=== PATIENT | female | born 1970 | race Caucasian/White ===

== ENCOUNTER 2021-12-19 09:28 | Outpatient (CLI) | payer BC, SELFPAY ==
--- NOTE | 2021-12-19 09:58 | ECHO_ITS ---
Patient Info Name: Luz Maria Guevara Age: 51 years : 1970 Gender: Female Ht: 66 in Wt: 195 lbs BSA: 2.06 m2 HR: 65 bpm BP: 110 / 79 mmHg Technical Quality: Good Exam Date: 12/19/2021 10:05 AM Exam Location: [facility] Patient Status: Outpatient Admit Date: 12/19/2021 Staff Ordering Physician: Evi Lynne NP Health Program Manager: Amparo Nicole RDCS Attending Provider: Evi Lynne NP Referring Physician: Guera TORRES; Exam Type: CA echo doppler color flow Study Info Indications R07.9 - Chest pain, unspecified Complete two-dimensional, color flow and Doppler transthoracic echocardiogram is performed. Summary 1. Complete two-dimensional, color flow and Doppler transthoracic echocardiogram is performed. 2. Left ventricular chamber dimension is normal. 3. Left ventricular systolic function is normal, estimated at 60-65%. 4. The left ventricular diastolic function is normal. 5. E/e' 7 is not elevated. 6. Global longitudinal strain is normal at -19.4%. 7. No pulmonary hypertension, estimated pulmonary arterial systolic pressure is 29 mmHg. Left Ventricle E/e' 7 is not elevated. Global longitudinal strain is normal at -19.4%. Left ventricular chamber dimension is normal. Left ventricular systolic function is normal, estimated at 60-65%. The left ventricular diastolic function is normal. Right Ventricle Right ventricular chamber dimension is normal. Right ventricular systolic function is normal. Left Atria Left atrial chamber dimension is normal. Right Atria Right atrial chamber dimension is normal. Aortic Valve The aortic valve is trileaflet. There is no aortic valve stenosis. There is no aortic valve regurgitation. Pulmonic Valve There is no pulmonic regurgitation. Mitral Valve There is no mitral valve stenosis. There is no mitral valve regurgitation. Tricuspid Valve There is no tricuspid valve regurgitation. No pulmonary hypertension, estimated pulmonary arterial systolic pressure is 29 mmHg. Pericardium/Pleural There is no pericardial effusion. Inferior Vena Cava Inferior vena cava is not well visualized. Aorta The aortic root size at the sinus of Valsalva is normal. Left Ventricular Outflow Tract Name Value Normal LVOT 2D LVOT Diameter 2.0 cm LVOT Doppler LVOT Peak Gradient 5 mmHg LVOT Mean Gradient 3 mmHg LVOT VTI 22 cm LVOT VTI/AV VTI Ratio 0.8 LVOT Stroke Volume 66 ml LVOT CO 3.9 l/min LVOT CI 1.9 l/min/m2 Pulmonic Valve Name Value Normal RVOT Doppler RVOT Peak Gradient 2 mmHg PV Doppler
== END 2021-12-19 09:29 | disposition home or self-care (01) ==
LOC: ANHCARD 09:29
PROVIDERS: Visit Provider Nurse Practitioner
DX: R07.9 Chest pain, unspecified (principal); U09.9 Post COVID-19 condition, unspecified
CPT/HCPCS: 93306

== ENCOUNTER 2023-02-02 03:51 | Emergency (ER) | payer OTHER, SELFPAY ==
--- NOTE | ~2023-02-02 | CT_ITS ---
EXAMINATION: CT lumbar spine wo con DATE: 02/02/2023 04:32 INDICATION: Low back pain. TECHNIQUE: Computed tomography (CT) of the lumbar spine was performed without intravenous contrast. A utomated exposure control and iterative reconstruction technique were employed. The dose-length produ ct was 954.32 mGy-cm. COMPARISON: None FINDINGS: There is 5 degrees levocurvature of lumbar spine. Vertebral body heights and intervertebral disc heights are normal. The following disc levels are specifically discussed: L1-L2: The disc does not extend beyond the endplate margin. There is mild bilateral facet joint osteo arthritis. There is no neural foraminal stenosis. There is no central canal stenosis. L2-L3: The disc is bulging. There is mild bilateral facet joint osteoarthritis. There is mild left ne ural foraminal stenosis. There is mild central canal stenosis. L3-L4: The disc is bulging. There is mild bilateral facet joint osteoarthritis. There is mild bilater al neural foraminal stenosis. There is mild central canal stenosis. L4-L5: The disc is bulging. There is moderate bilateral facet joint osteoarthritis. There is mild rig ht neural foraminal stenosis. There is no central canal stenosis. L5-S1: There is a right foraminal protrusion. There is mild bilateral facet joint osteoarthritis. The re is mild right neural foraminal stenosis. There is no central canal stenosis. IMPRESSION: 1. Mild lumbar spondylosis. Reviewed, dictated and finalized at location A. GUIDE IMPRESSION: 1. Mild lumbar spondylosis.
[2023-02-02 03:53] VITALS: PULSE 74; RESP 14; TEMP 36.7; O2SAT 100
[2023-02-02] MEDS: DEXAMETHASONE SOD PHOS INJ 4 MG/ML VIAL 10 MG IV PUSH (04:37)
[2023-02-02] MEDS: HYDROmorphone HCL INJ (*CRX) 1 MG/ML SYR IV PUSH (04:38)
[2023-02-02] MEDS: KETOROLAC 30 MG/ML VIAL (*BKC) IV PUSH (04:38)
[2023-02-02] MEDS: diazePAM INJ (*CRX) 10 MG/2 ML SYRINGE 5 MG IV PUSH (04:38)
[2023-02-02 04:48] LABS: Basophils Percent Auto 0.5 % (0.2-1.2); Eosinophils Percent Auto 0.5 % (0-4.4); Hematocrit 41.8 % (37.0-47.0); Hemoglobin 13.9 g/dL (12.0-15.0); Immature Granulocyte Absolute 0.01 K/mm3 (0.00-0.031); Immature Granulocyte Percent A 0.2 % (0-0.5); Lymphocytes Absolute Auto 1.71 K/mm3 (0.9-3.2); Lymphocytes Percent Auto 26.4 % (18.3-44.2); Mean Corpuscular HGB Conc 33.3 g/dl (32-36); Mean Corpuscular Hemoglobin 32.7 pg (26-34); Mean Corpuscular Volume 98.4 fl (80-100); Mean Platelet Volume 9.7 fl (7.4-10.4); Monocytes Absolute Auto 0.4 K/mm3 (0.1-0.6); Monocytes Percent Auto 6.3 % (2.6-8.5); Neutrophils Absolute Auto 4.3 K/mm3 (1.3-6.7); Neutrophils Percent Auto 66.1 % (45.5-73.1); Platelet Count Result 284 k/mm3 (150-375); Red Blood Count 4.25 M/mm3 (4.2-5.4); Red Cell Distribution Width 12.1 % (11.5-14.5); White Blood Count 6.5 K/mm3 (4.5-10.0)
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
[2023-02-02 05:02] LABS: Alanine Aminotransferase 16 U/L (6-35); Albumin Level 4.6 g/dL (3.5-5.1); Alkaline Phosphatase 75 U/L (38-126); Anion Gap 5 mmol/L (8-16); Aspartate Amino Transferase 19 U/L (14-36); Bilirubin,Total 0.5 mg/dL (0.2-1.3); Blood Urea Nitrogen 18 mg/dL (7-17); Calcium 9.5 mg/dL (8.4-10.2); Carbon Dioxide 27 mmol/L (22-30); Chloride 107 mmol/L (98-107); Estimated Glomerular Filt Rate > 60; Glucose 124 mg/dL (65-110); Potassium 4.3 mmol/L (3.4-5.0); Sodium 139 mmol/L (137-145)
[2023-02-02 06:18] LABS: Appearance Urine Clear (Clear); Bacteria Urine None Seen /hpf; Bilirubin Urine Negative (Negative); Blood Urine Negative (Negative); Color Urine Yellow (Yellow); Glucose Urine UA Negative (Negative); Ketones Urine Negative (Negative); Leukocyte Esterase Ur Trace LEU/UL (Negative); Nitrate Urine Negative (Negative); Non Pathogenic Casts 0-2; Protein Urine Negative (Negative); RBC Urine 0-2 /hpf (0-2); Specific Grav Ur 1.014 (1.001-1.035); Squamous Epithelial Cell Urine None seen /hpf (Few); Urobilinogen Urine 0.2 mg/dL (<2.0)
[2023-02-02 06:26] LABS: Add Urine Microscopic? YES
--- NOTE | 2023-02-02 07:40 | PC.NURSE ---
pt ambulated with slow steady gait in room. states is moving much better than previous ambulation attempt.
== END 2023-02-02 07:50 | disposition home or self-care (01) ==
PROVIDERS: Emergency Provider Emergency Medicine; PCP Internal Medicine
DX: S39.012A Strain of muscle, fascia and tendon of lower back, initial encounter (principal); X50.0XXA Overexertion from strenuous movement or load, initial encounter; Z87.891 Personal history of nicotine dependence; Z79.899 Other long term (current) drug therapy
CPT/HCPCS: 36415; 72131; 80053; 81001; 85025; 87086; 87088; 96374; 96375; 99284; J1100; J1170; J1885; J3360

== ENCOUNTER → 2023-05-02 14:18 | Outpatient (CLI) | payer OTHER, SELFPAY ==
--- NOTE | ~2023-05-02 | XR_ITS ---
EXAMINATION: XR chest 2V DATE: 05/02/2023 14:25 INDICATION: Cough and fever TECHNIQUE: PA and lateral views of the chest are obtained. COMPARISON: None available FINDINGS: There are airspace opacities of the left lower lobe. No pleural effusion or pneumothorax. T he cardiomediastinal silhouette is normal. There is mild thoracic spondylosis. IMPRESSION: 1. Left lower lobe airspace opacities, likely pneumonia. Consider followup radiographs or chest CT in six weeks if symptoms persist after appropriate therapy or if the patient is at high risk for malign toshia. Reviewed, dictated and finalized at location L. IMPRESSION: 1. Left lower lobe airspace opacities, likely pneumonia. Consider followup radi ographs or chest CT in six weeks if symptoms persist after appropriate therapy or if the patient is at high risk for malignancy.
== END ==
PROVIDERS: PCP Nurse Practitioner; Visit Provider Clinical Nurse Specialist
DX: R91.8 Other nonspecific abnormal finding of lung field (principal); R05.9 Cough, unspecified; R50.9 Fever, unspecified
CPT/HCPCS: 71046

== ENCOUNTER → 2023-06-27 14:06 | Outpatient (CLI) | payer OTHER, SELFPAY ==
--- NOTE | ~2023-06-27 | XR_ITS ---
EXAMINATION: XR chest 2V 06/27/2023 14:15 INDICATION: Pneumonia follow-up PROCEDURE: 2 view chest COMPARISON: 05/02/2023 FINDINGS: The lungs are clear. Interval resolution of left basilar pneumonia. The cardiomediastinal s ilhouette is within normal limits. There are no pleural effusions. There is no pneumothorax suspect ed. IMPRESSION: 1: NO ACUTE CARDIOPULMONARY DISEASE. Reviewed, dictated and finalized at location A.
== END ==
PROVIDERS: PCP Nurse Practitioner; Visit Provider Clinical Nurse Specialist
DX: J18.9 Pneumonia, unspecified organism (principal)
CPT/HCPCS: 71046

== ENCOUNTER 2025-05-18 14:45 | Outpatient (RCR) | payer OTHER, SELFPAY ==
--- NOTE | 2025-04-22 19:05 | PTOPEVAL1 ---
Assessment and note entered by Debra Enrique, PT Evaluation Information Assessment Status Evaluation Diagnosis M54.50 ICD-10 Condition Codes (PT) Pain in low back M54.50,Radiculopathy, lumbar region M54.16,Radiculopathy, sacral and sacrococcygeal region M54.18,Weakness R53.1 Onset Off and on for 6-7 yrs Subjective Information Pt c/o a flare up and worsening chronic low back pain. States feeling spasms and stabbing pain to her lowback which will occasionally radiate to L buttocks and a little bit on the upper L thigh. Received steroid injection and pills last month, experienced some pain relief but not completely resolved. States that whenever she has infection, the back spasms seem to flare up and she would be stuck in one position due to sharp and stabbing pain. Pain aggravating: prolonged sitting and car driving, Reduced temporarily by icing and ibuprofen. Her personal goal is for pain to go away and be able to tolerate sitting, walking or standing without debilitating discomfort. Assessment PT Clinical Summary Pt presents to therapy with c/o worsening low back spasms resulting to sharp and stabbing pain which is sporadic but appears to be aggravated by prolonged sitting and turning in bed, prolonged standing. 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 She also c/o increasing pain to R shoulder but agreeable to treatment for LBP prior to addressing shoulder issue. Pt will greatly benefit from skilled PT for pain management, lumbar stabilization exercises, core strengthening , flexibility exercises and mobilization techniques to improve performance of functional mobility and activity tolerance. Plan of Care Interventions Check Out for Orthotic/Prosthetic,Electrical Stimulation,Gait Training,Hot Pack/Cold Pack, Manual Therapy,Neuro Re-education,Patient/ Caregiver Education,Therapeutic Activities, Therapeutic Exercise,Ultrasound,Other Other Interventions IASTM, Taping, Dry Needling PT Services Indicated Yes Treatment Frequency and 2x/wk x 8 visits Duration These treatments will address the objective and functional deficits as defined above. The patient will be advanced safely and appropriately in order for the patient to progress towards his/her prior level of function. Additional exercises will be introduced and as well as a comprehensive home exercise program upon discharge, if needed, ?to ensure carryover of functional gains achieved in the clinic. This treatment plan has been reviewed and agreement upon by the patient.
--- NOTE | 2025-04-22 19:05 | OPREHPOC ---
Outpatient Therapy Plan of Care This is a Multidisciplinary Plan of Care that may contain components documented by all disciplines (PT, OT, and ST.) PT Problem 1 PT Problem #1 Knowledge Deficit PT Goal 1 Goal / Goal Update 1. Pt will demo good understanding and application of proper body mechanics, proper ergonomics and back protection techniques. 2. Pt will perform HEPs for lumbar stabilization and core strengthening indep Target Visit 8 PT Problem 2 PT Problem #2 Pain PT Goal 1 Goal / Goal Update Pt will report complete resolution of pain levels and increase sitting and standing tolerance upto 2 hours without discomfort with appropriate supports and orthosis in place if appropriate. Target Visit 8 PT Problem 3 PT Problem #3 Impaired Flexibility PT Goal 1 Goal / Goal Update 1. Pt will demo improved lumbar active rotation and lateral flexion ROM to WNL without discomfort or pain. 2. Pt will demo improved TAMMY ROM, hamstring length test to 20 or less without discomfort. Target Visit 8
--- NOTE | 2025-05-18 15:20 | OPREHPOC ---
Outpatient Therapy Plan of Care This is a Multidisciplinary Plan of Care that may contain components documented by all disciplines (PT, OT, and ST.) PT Problem 1 PT Problem #1 Knowledge Deficit PT Goal 1 Goal / Goal Update 1. Pt will demo good understanding and application of proper body mechanics, proper ergonomics and back protection techniques. 2. Pt will perform HEPs for lumbar stabilization and core strengthening indep Target Visit 8 Progress Met PT Problem 2 PT Problem #2 Pain PT Goal 1 Goal / Goal Update Pt will report complete resolution of pain levels and increase sitting and standing tolerance upto 2 hours without discomfort with appropriate supports and orthosis in place if appropriate. Target Visit 8 Progress Met PT Problem 3 PT Problem #3 Impaired Flexibility PT Goal 1 Goal / Goal Update 1. Pt will demo improved lumbar active rotation and lateral flexion ROM to WNL without discomfort or pain. 2. Pt will demo improved TAMMY ROM, hamstring length test to 20 or less without discomfort. Target Visit 8 Progress Met
--- NOTE | 2025-05-18 15:20 | PTOPDC ---
Assessment and note entered by Carlos Eduardo Forrest, PT Evaluation Information Assessment Status Discharge Diagnosis M54.50 ICD-10 Condition Codes (PT) Pain in low back M54.50,Radiculopathy, lumbar region M54.16,Radiculopathy, sacral and sacrococcygeal region M54.18,Weakness R53.1 Onset Off and on for 6-7 yrs Subjective Information Reports that overall she is doing very well. Feels she met all of her expected goals for therapy at this time and has no concerns. Understands need for continued consistency. Reported Pain Level Pain Score 0: Self Report Assessment PT Clinical Summary Patient met all goals for therapy and is suitable for discharge to [facility] at this time. Added HEP for lateral hip strengthening with no concerns. Plan of Care PT Services Indicated Yes
== END 2025-05-19 07:47 | disposition home or self-care (01) ==
LOC: ANHGOSHPT 14:45
PROVIDERS: PCP Nurse Practitioner; Visit Provider Nurse Practitioner
DX: M54.50 Low back pain, unspecified (principal)
CPT/HCPCS: 97110; 97112; 97140; 97161; 97530